=== PATIENT | female | born 1970 | race African-American/Black ===

== ENCOUNTER 2022-07-08 11:24 | Emergency (ER) | payer BC ==
[~2022-07-08] VITALS: Ht 175.3 cm; Wt 64.0 kg
[~2022-07-08 11:24] MED LIST: IRON; MVI
[2022-07-08 11:33] VITALS: BP 146/84
== END 2022-07-08 11:49 | disposition left against medical advice (07) ==
LOC: ER 11:24
DX: Z53.21 Procedure and treatment not carried out due to patient leaving prior to being seen by health care provider (principal)
CPT/HCPCS: 99281